=== PATIENT | female | born 1995 | race Caucasian/White ===

== ENCOUNTER 2022-01-30 08:44 | Outpatient (CLI) | payer BC, SELFPAY | END 2022-01-30 08:45 | disposition home or self-care (01) | LOC: NFLDREF 08:45 | PROVIDERS: PCP Nurse Practitioner Family; Visit Provider Advanced Practice Midwife | DX: N39.0 Urinary tract infection, site not specified (principal); R30.0 Dysuria | CPT/HCPCS: 87086; 87186 ==